=== PATIENT | female | born 1985 | race African-American/Black ===

== ENCOUNTER 2020-03-29 11:38 | Outpatient (CLI) | payer BC ==
--- NOTE | 2020-03-29 13:09 | MRI ---
MRI CERVICAL SPINE: Date: 03/29/2020 PROVIDED CLINICAL HISTORY: Cervical radiculopathy. FINDINGS: Cervical alignment appears normal. Vertebral body heights appear preserved. No focal concerning regio nal marrow or muscular signal abnormality. There is a somewhat poorly defined area of increased signal intensity on fluid sensitive sequences in volving the dorsal aspects of the spinal cord in the midline at about the level of C3-4. There is no alteration in cervical cord morphology in this region. There is no evidence for syrinx or definite ad ditional cord signal abnormality. The visualized posterior fossa and cervicomedullary junction appear normal. There is no significant central canal or foraminal narrowing apparent. No significant cervical disc o r facet degenerative change is evident. IMPRESSION: Abnormal signal intensity involving the cervical spinal cord as described above. The MR features of t his process are nonspecific, and demyelinating condition such as multiple sclerosis and nonspecific t ransverse myelitis should be considered. Neoplasm is felt less likely. Correlation with a postcontras t study of the cervical spine in addition to MR imaging of the brain with and without contrast are re commended for further evaluation. POS: KISHA
== END 2020-03-29 11:39 | disposition home or self-care (01) ==
LOC: MRI 11:38
PROVIDERS: ATTEND Chiropractor
DX: M54.12 Radiculopathy, cervical region (principal); M99.01 Segmental and somatic dysfunction of cervical region
CPT/HCPCS: 72141